=== PATIENT | male | born 1965 | race Caucasian/White ===

== ENCOUNTER 2016-05-27 17:47 | Inpatient (IN) | payer OTHER ==
[~2016-05-27] VITALS: Ht 180.3 cm; Wt 110.9 kg
[2016-05-27] MEDS ORDERED: ONDANSETRON INJ 2 MG/ML 2 ML VIAL IV STA (18:43)
[2016-05-27] MEDS ORDERED: SODIUM CHLORIDE 0.9% 1000ML 1,000 ML IV STA ×2 (18:43)
--- NOTE | 2016-05-27 18:59 | EMERGENCY ROOM VISIT NOTE ---
History Report prepared by Leonard: Liana Sequeira Under the Supervision of: Dr. Isauro Manley M.D. First contact with patient: 18:34 Chief Complaint: ABDOMINAL PAIN Stated Complaint: SEVERE ABDOMINAL PAIN ABOVE BELLY BUTTON/RT SIDE Nursing Triage Summary: Patient reports abd pain that started in his mid abd this morning and is now moving into the right lower quadrant. Patient also having nausea and fever. History of Present Illness The patient is a 51 year old male who presents to the Emergency Room with complaints of worsening right lower quadrant abdominal pain starting this morning. He was at baseline last night. The pain initially started out in the periumbilical region but is now located in the right lower quadrant. He currently rates a pain intensity of 8/10. He has worsening pain with deep breathing, laughing, and movement. He also complains of nausea but denies vomiting. The patient reports a loss of appetite. He denies fevers, chills, cough, congestion, diarrhea, urinary symptoms, or any other complaints. He denies any history of diverticulitis or any abdominal surgeries. He does not take any blood thinners. Source of History: patient Onset: this morning Position: abdomen (RLQ) Symptom Intensity: 8/10 Modifying Factors (Worsening): breathing (deep), movement, other (laughing) Associated Symptoms: + nausea, No chills, No cough, No diarrhea, No fevers, No urinary symptoms, No vomiting Review of Systems See HPI for pertinent positives & negatives. A total of 10 systems reviewed and were otherwise negative. Past Medical & Surgical Medical Problems: (1) Hypertension Family History Patient reports no known family medical history. Social History Smoking Status: Current Every Day Smoker Marital Status: Occupation Status: employed Current/Historical Medications Scheduled Metoprolol Succ (Toprol Xl) (Toprol-Xl), 50 MG PO DAILY Allergies Coded Allergies: No Known Allergies (Unverified , 05/27/16) Physical Exam Vital Signs Date Time Temp Pulse Resp B/P Pulse Ox O2 Delivery O2 Flow Rate FiO2 05/27/16 19:47 83 05/27/16 17:52 37.4 67 20 163/100 99 Room Air Physical Exam GENERAL: Patient is in no acute distress. HEENT: No acute trauma, normocephalic atraumatic, mucous membranes moist, no nasal congestion, no scleral icterus. NECK: No stridor, no adenopathy, no meningismus, trachea is midline. LUNGS: Clear to auscultation bilaterally, no wheeze, no rhonchi, breath sounds equal. HEART: Without murmurs gallops or rubs, regular rate and rhythm. ABDOMEN: Soft, moderately tender in the right lower quadrant, slightly tender in the right upper quadrant, bowel sounds positive, no hernias, no peritonitis. EXTREMITIES: No cyanosis or edema, full range of motion of all the joints without pain or difficulty, no signs for acute trauma. NEUROLOGIC: Oriented x 3, no acute motor or sensory deficits, no focal weakness. SKIN: No rash, no jaundice, no diaphoresis. Medical Decision & Procedures ER Provider Diagnostic Interpretation: CT results as stated below per my review and radiologist interpretation: CT OF THE ABDOMEN AND PELVIS WITH CONTRAST CLINICAL HISTORY: Right lower quadrant pain. Evaluate for acute appendicitis. COMPARISON STUDY: None. TECHNIQUE: Following IV administration of 116 mL of Optiray-320, axial images of the abdomen and pelvis were obtained from the lung bases to the proximal femurs. Images were reviewed in the axial, sagittal, and coronal planes. IV contrast was administered without complication. CT DOSE: 966.96 mGy.cm FINDINGS: Fatty infiltration of the liver is noted. Borderline cardiomegaly. The spleen, adrenal glands, kidneys and pancreas are unremarkable. There is no hydronephrosis. There is no evidence for a bowel obstruction. There is an appendicolith within the base of the appendix. The appendix is mildly dilated, measuring 1.2 cm in caliber. There is mild periappendiceal infiltration. There is no free air or abscess. There is a fat-containing umbilical hernia. There is no evidence for a bowel obstruction. Skeletal structures are unremarkable. IMPRESSION: 1. Acute appendicitis. No free air or abscess. 2. Fatty liver. 3. Fat-containing umbilical hernia. Electronically signed by: Vamsi Ocampo M.D. 05/27/2016 8:27 PM Dictated Date/Time: 05/27/2016 8:23 PM Laboratory Results 05/27/16 19:16 Red Blood Count 4.57, Mean Corpuscular Volume 88.8, Mean Corpuscular Hemoglobin 33.3, Mean Corpuscular Hemoglobin Concent 37.4, Mean Platelet Volume 8.8 05/27/16 19:16 Test 05/27/16 19:16 White Blood Count 12.10 K/uL (4.8-10.8) Red Blood Count 4.57 M/uL (4.7-6.1) Hemoglobin 15.2 g/dL (14.0-18.0) Hematocrit 40.6 % (42-52) Mean Corpuscular Volume 88.8 fL (80-100) Mean Corpuscular Hemoglobin 33.3 pg (25-34) Mean Corpuscular Hemoglobin Concent 37.4 g/dl (32-36) Platelet Count 183 K/uL (130-400) Mean Platelet Volume 8.8 fL (7.4-10.4) RDW Standard Deviation 40.3 fL (36.4-46.3) RDW Coefficient of Variation 12.5 % (11.5-14.5) Neutrophils % (Manual) 69.5 % Lymphocytes % (Manual) 23.5 % Monocytes % (Manual) 6.1 % Eosinophils % (Manual) 0.9 % Neutrophils # (Manual) 8.41 K/uL (1.4-6.5) Total Absolute Neutrophils 8.41 K/uL (1.4-6.5) Lymphocytes # (Manual) 2.84 K/uL (1.2-3.4) Total Absolute Lymphocytes 2.84 K/uL (1.2-3.4) Monocytes # (Manual) 0.74 K/uL (0.11-0.59) Eosinophils # (Manual) 0.11 K/uL (0-0.5) Prothrombin Time 10.5 SECONDS (9.0-12.0) Prothromb Time International Ratio 1.0 (0.9-1.1) Activated Partial Thromboplast Time 26.7 SECONDS (21.0-31.0) Partial Thromboplastin Ratio 1.0 Anion Gap 8.0 mmol/L (3-11) Est Creatinine Clear Calc Drug Dose 150.2 ml/min Estimated GFR () 123.4 Estimated GFR (Non- 106.5 BUN/Creatinine Ratio 15.6 (10-20) Calcium Level 9.0 mg/dl (8.5-10.1) Total Bilirubin 0.8 mg/dl (0.2-1) Aspartate Amino Transf (AST/SGOT) 20 U/L (15-37) Alanine Aminotransferase (ALT/SGPT) 38 U/L (12-78) Alkaline Phosphatase 70 U/L (45-117) Total Protein 7.9 gm/dl (6.4-8.2) Albumin 4.1 gm/dl (3.4-5.0) Globulin 3.8 gm/dl (2.5-4.0) Albumin/Globulin Ratio 1.1 (0.9-2) Lipase 110 U/L (73-393) Laboratory results reviewed by me. Medications Administered Medications (Trade) Dose Ordered Sig/Rui Route Start Time Stop Time Status Last Admin Dose Admin Ondansetron HCl 4 mg 4 mg NOW STAT IV 05/27/16 18:43 05/27/16 18:45 DC 05/27/16 19:28 4 MG Sodium Chloride (Nss 1000ml) 1,000 ml @ 999 mls/hr Q1H1M STAT IV 05/27/16 18:43 05/27/16 19:43 DC 05/27/16 19:29 999 MLS/HR Morphine Sulfate (MoRPHine SULFATE INJ) 4 mg Q30M PRN IV 05/27/16 18:45 06/10/16 18:44 05/27/16 19:29 4 MG ED Course 1834: The patient was evaluated in room C03. A complete history and physical exam was performed. 1843: Sodium Chloride 1000 ml @ 999 mls/hr IV, Sodium Chloride 1000 ml @ 200 mls /hr IV, Zofran Inj 4 mg IV 1845: Morphine Sulfate 4 mg IV 3: The patient will be given Benadryl due to his complaint of itching after he received Morphine. 2035: Cefoxitin IV 200 mg IV. I discussed the patient's case with Dr. Jones , general surgeon with [facility]. He recommended antibiotics and he will evaluate the patient for further management. Upon reevaluation, I discussed results and treatment plan with the patient. He verbalizes agreement and understanding. Medical Decision Differential diagnosis includes but is not limited to appendicitis, diverticulitis, hernia, UTI, pancreatitis, biliary colic, musculoskeletal pain. There is a mild leukocytosis which would be consistent with infection, no anemia. No significant electrolyte abnormality, kidney failure or hepatitis. There is no pancreatitis. On exam, the patient was not febrile. He is tender though in the right lower quadrant. Abdominal and pelvis CT shows evidence for acute appendicitis, no evidence for abscess or for perforation. The patient was given IV saline, IV morphine and IV Zofran. He received IV Benadryl when he began to itch from the morphine. I spoke with the on-call surgeon. The patient will be seen for presumed appendectomy. I did order for 2 g of IV Mefoxin for antibiotic coverage. I talked to the patient, case management is aware. Consults Time Called: 2030 Consulting Physician: Dr. Jones, general surgeon with [facility] Returned Call: [phone] I discussed the patient's case with Dr. Jones, general surgeon with [facility]. He recommended antibiotics and he will evaluate the patient for further management. Impression Primary Impression: Acute appendicitis Scribe Attestation The scribe's documentation has been prepared under my direction and personally reviewed by me in its entirety. I confirm that the note above accurately reflects all work, treatment, procedures, and medical decision making performed by me. Departure Information Dispostion Being Evaluated By Surgeon Sohail Masterson M.D. (PCP) Patient Instructions My [facility]
[2016-05-27] MEDS ORDERED: OPTIRAY 320 IV PRN (19:00)
[2016-05-27] MEDS ORDERED: METO50TA7 PO (19:00)
[2016-05-27] MEDS: MoRPHine SULFATE 4 MG/ML 1 ML CARP\\VIAL IV PRN ×2 (19:29→21:22)
[2016-05-27 19:43] LABS: PROTHROMBIN TIME (PATIENT) 10.5 SECONDS (9.0-12.0)
[2016-05-27] MEDS ORDERED: DiphenhydrAMINE HCL 50 MG/ML VIAL ONE (19:44)
[2016-05-27 19:48] LABS: BUN/CREATININE RATIO 15.6 (10-20); CREATININE 0.72 mg/dl (0.60-1.40); POTASSIUM 3.8 mmol/L (3.5-5.1)
[2016-05-27 19:51] LABS: ALB/GLOB RATIO 1.1 (0.9-2)
[2016-05-27 20:03] LABS: HEMATOCRIT 40.6 % (42-52); MEAN CELL VOLUME 88.8 fL (80-100); MEAN CORPUSCULAR HEMOGLOBIN 33.3 pg (25-34); MEAN CORPUSCULAR HGB CONC 37.4 g/dl (32-36); MEAN PLATELET VOLUME 8.8 fL (7.4-10.4); PLATELET COUNT 183 K/uL (130-400); RED BLOOD COUNT 4.57 M/uL (4.7-6.1)
[2016-05-27 20:21] LABS: COMPLETE YES; EOSINOPHIL % 0.9 %; LYMPH ABS # 2.84 K/uL (1.2-3.4); LYMPHOCYTE % 23.5 %; NEUTROPHILS % 69.5 %
--- NOTE | 2016-05-27 20:28 | DIAGNOSTIC IMAGING REPORT ---
CT OF THE ABDOMEN AND PELVIS WITH CONTRAST CLINICAL HISTORY: Right lower quadrant pain. Evaluate for acute appendicitis. COMPARISON STUDY: None. TECHNIQUE: Following IV administration of 116 mL of Optiray-320, axial images of the abdomen and pelvis were obtained from the lung bases to the proximal femurs. Images were reviewed in the axial, sagittal, and coronal planes. IV contrast was administered without complication. CT DOSE: 966.96 mGy.cm FINDINGS: Fatty infiltration of the liver is noted. Borderline cardiomegaly. The spleen, adrenal glands, kidneys and pancreas are unremarkable. There is no hydronephrosis. There is no evidence for a bowel obstruction. There is an appendicolith within the base of the appendix. The appendix is mildly dilated, measuring 1.2 cm in caliber. There is mild periappendiceal infiltration. There is no free air or abscess. There is a fat-containing umbilical hernia. There is no evidence for a bowel obstruction. Skeletal structures are unremarkable. IMPRESSION: 1. Acute appendicitis. No free air or abscess. 2. Fatty liver. 3. Fat-containing umbilical hernia. Electronically signed by: Vamsi Ocampo M.D. 05/27/2016 8:27 PM Dictated Date/Time: 05/27/2016 8:23 PM
[2016-05-27] MEDS ORDERED: CEFOXITIN SOD 2 GM VIAL IV STA (20:35)
[2016-05-27 21:49] LABS: URINE APPEARANCE CLEAR (CLEAR); URINE BILIRUBIN NEG (NEG); URINE COLOR YELLOW; URINE EPITHELIAL CELL AUTO 0-5 /lpf (0-5); URINE NITRITE NEG (NEG); URINE SPECIFIC GRAVITY 1.041 (1.000-1.030); UROBILINOGEN NEG (NEG); ZZUR CULT IF INDIC CLEAN CATCH NO
[2016-05-27 21:50] LABS: MANUAL MICROSCOPIC REQUIRED? NO; REVIEW REQ? NO
[2016-05-27] MEDS ORDERED: LIDOCAINE/EPINEPHRINE 1% 20 ML VIAL ONE (21:51)
[2016-05-27 21:59] VITALS: Ht 180.3 cm; Wt 110.9 kg
--- NOTE | 2016-05-27 22:09 | History & Physical Bridge Note ---
H&P Re-Evaluation Bridge Note: I have examined the patient, reviewed the History & Physical and in the interval since the performance of the History & Physical I have noted the following changes of clinical significance: No changes notedh and p dictated at 100 10;10 pm confirmation number [id number] dx acute appendicitis, plan lap appy possible open
[2016-05-27] MEDS ORDERED: LACTATED RINGER'S 1000ML 1,000 ML IV SCH (22:15)
[2016-05-27] MEDS ORDERED: MIDAZOLAM HCL 1 MG/ML 2ML VIAL ONE (22:26)
[2016-05-27] MEDS ORDERED: FENTANYL CITRATE INJ 50 MCG/1 ML 2 ML VIAL ONE ×3 (22:28→23:56)
[2016-05-27] MEDS ORDERED: LABETALOL HCL IV 5 MG/ML 20ML IV PRN (22:45)
[2016-05-27] MEDS ORDERED: ATROPINE SULFATE 0.1 MG/ML 5ML SYR IV PRN (22:45)
[2016-05-27] MEDS ORDERED: HYDROmorphone INJ 1 MG/ML SYR IV PRN (22:45)
[2016-05-27] MEDS ORDERED: EpHEDrine SULFATE INJ 50 MG/ML AMP IV PRN (22:45)
[2016-05-27] MEDS ORDERED: ONDANSETRON INJ 2 MG/ML 2 ML VIAL IV PRN (22:45)
[2016-05-27] MEDS ORDERED: MEPERIDINE HCL 25 MG/ML CARP IV PRN (22:45)
--- NOTE | 2016-05-27 22:57 | HISTORY & PHYSICAL EXAMINATION ---
DATE OF ADMISSION: 05/27/2016 SUMMARY: I was called at approximately 9:15 or so by the ER physician when the patient had presented with acute appendicitis. We came in to see him after we finished the other case, it is now approximately 10:00. The patient is a 51-year-old gentleman who presented to the Emergency Room early this evening with probably a 12-hour or so history of abdominal pain that started about 6:00 this morning, started in the supraumbilical area, eventually migrated to lower abdomen. 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 Eventually got to the point that he called his family doctor early afternoon and they advised him to come to the ER where he was evaluated by CAT scan and found a 1.2 cm structure in the lower quadrant compatible with appendix, probably acute appendicitis. The patient has had nausea but he has had no vomiting and no diarrhea. PAST MEDICAL HISTORY: Positive for the patient had bilateral rotator cuff surgeries, back surgery, knee surgery. Other than that, antihypertensive drug is the only drug that he has taken. ALLERGIES: He has no known allergies, although when we walked in to see him this evening, he had broken out on a generalized reaction, a pruritic type of thing, whether it was related to drug sensitivity. He had only had morphine and Mefoxin. Apparently, he may have had morphine at his other surgeries and did not seem to have a problem. SOCIAL HISTORY: He smokes and drinks some wine, I am not sure of the intensity of that either. Denies any real changes in weight as best as we can tell. PHYSICAL EXAMINATION: GENERAL: At this time reveals a very pleasant, somewhat nervous, hard of hearing gentleman in no acute distress other than that mentioned about his skin rash. HEAD: Normocephalic. EYES: PERRLA. There is no scleral icterus. NECK: There is no cervical lymphadenopathy. Carotid without any bruits. THROAT: Oropharyngeal area is free of any inflammatory process. LUNGS: Clear to auscultation. HEART: Normal sinus rhythm. ABDOMEN: Soft. He has exquisite tenderness at McBurney's point. He has a small umbilical hernia. EXTREMITIES: No pedal edema. LABORATORY DATA: White count is 12.10, he does have a left shift. The CAT scan as mentioned. His chemistries and liver function tests were all normal. PLAN: To proceed with laparoscopic appendectomy, possible open. Risks and complications were explained to the patient of bleeding, infection, converting to an open procedure, and he would like to proceed accordingly.
[2016-05-27] MEDS ORDERED: DEXAMETHASONE SOD INJ 4 MG/ML VIAL ONE (23:02)
[2016-05-27] MEDS ORDERED: ONDANSETRON INJ 2 MG/ML 2 ML VIAL ONE (23:02)
[2016-05-27] MEDS ORDERED: LIDOCAINE HCL 2% 2 ML VIAL (20MG/ML) ONE (23:02)
[2016-05-27] MEDS ORDERED: GLYCOPYRROLATE INJ 0.2 MG/ML VIAL ONE (23:02)
[2016-05-27] MEDS ORDERED: NEOSTIGMINE METHYLSULFATE 5 MG/5 ML SYR ONE (23:02)
[2016-05-27] MEDS ORDERED: ROCURONIUM BROMIDE 10 MG/ML 5 ML VIAL ONE ×2 (23:02→23:46)
[2016-05-27] MEDS ORDERED: PROPOFOL IV EMULSION 10 MG/ML 20 ML VIAL IV ONE ×2 (23:02→23:41)
[2016-05-27] MEDS ORDERED: LABETALOL HCL IV 5 MG/ML 20ML IV ONE (23:06)
[2016-05-28] VITALS (11 sets, daily range): BP systolic 124–158; BP diastolic 72–101; PULSE 69–84; TEMP 36.4–37.2; O2SAT 94–98
--- NOTE | 2016-05-28 00:04 | [facility] Post Operative Brief Note ---
Immediate Operative Summary Operative Date May 28, 2016. Pre-Operative Diagnosis Acute Appendicitis Post-Operative Diagnosis Acute Appendicitis inc umbilical hernia Procedure(s) Performed Laparoscopic Appendectomy repair incar umbilical hernia Surgeon Dr. Jones Estimated Blood Loss 6ml Findings acute necrotic perfo appendicitis Specimens For Culture: 1. Peritoneal Fluid - Culture and Sensitivity, Aerobic, Anaerobic - Routine Permanent: A. Appendix Drains 19 kayleen per stab ruq
[2016-05-28] MEDS ORDERED: ONDANSETRON INJ 2 MG/ML 2 ML VIAL IV PRN (00:15)
[2016-05-28] MEDS: FENTANYL CITRATE INJ 50 MCG/1 ML 2 ML VIAL IV PRN ×2 (00:23→00:37)
--- NOTE | 2016-05-28 00:44 | Anesthesiology Progress Note ---
Anesthesia Post Op Note Date & Time May 28, 2016 at 00:44 Vital Signs Pain Intensity: 9.0 Vital Signs Past 12 Hours Date Time Temp Pulse Resp B/P Pulse Ox O2 Delivery O2 Flow Rate FiO2 05/28/16 00:35 75 25 164/94 96 Mask 8 05/28/16 00:25 80 27 151/88 90 Mask 8 05/28/16 00:15 81 26 153/92 90 Mask 5 05/28/16 00:12 37.1 81 27 142/84 91 Mask 5 05/27/16 22:17 37.4 83 20 163/100 99 05/27/16 21:59 Room Air 05/27/16 19:47 83 05/27/16 17:52 37.4 67 20 163/100 99 Room Air Notes Mental Status: alert / awake / arousable, participated in evaluation Pt Amnestic to Procedure: Yes Nausea / Vomiting: adequately controlled Pain: adequately controlled Airway Patency, RR, SpO2: stable & adequate BP & HR: stable & adequate Hydration State: stable & adequate Anesthetic Complications: no major complications apparent
[2016-05-28] MEDS: HYDROmorphone INJ 1 MG/ML SYR IV PRN ×4 (01:50→17:49)
[2016-05-28] MEDS: LACTATED RINGER'S 1000ML 1,000 ML IV SCH ×3 (01:50→17:18)
[2016-05-28] MEDS: METRONIDAZOLE / NSS 500 MG in PREMIXED NSS 100 ML IV SCH ×3 (02:10→17:49)
[2016-05-28] MEDS: OXYCODONE/ACETAMINOPHEN 5-325 TAB PO PRN ×5 (03:37→19:52)
[2016-05-28] MEDS: CIPROFLOXACIN / D5W 400 MG in PREMIXED IN D5W 200 ML IV SCH ×2 (05:54→19:08)
[2016-05-28] MEDS: HEPARIN SOD 5000 UNIT/0.5 ML CARP SQ SCH ×3 (06:05→21:29)
--- NOTE | 2016-05-28 07:33 | OPERATIVE REPORT ---
DATE OF OPERATION: 05/28/2016 SURGEON: Dr. Jones. PREOPERATIVE DIAGNOSIS: Acute appendicitis, very small umbilical hernia. POSTOPERATIVE DIAGNOSIS: Same with incarcerated umbilical hernia. PROCEDURE: Laparoscopic appendectomy, repair of incarcerated umbilical hernia. SUMMARY: After induction of general anesthesia, the patient's abdomen was prepped with Betadine scrubbing solution and properly draped. The patient had a very small umbilical incarcerated hernia that I thought initially we tried to stay away to enter in laparoscopic aspect. Therefore, we made an incision in the superior aspect of the umbilical area, deepened through subcutaneous tissue, but we were met with the hernia protruding in that area. Therefore, I elected at this time, even though I had not planned to, go ahead and reduce the incarcerated umbilical hernia. I used 0 sutures of Vicryl stay sutures as we entered the peritoneal cavity. The patient had some significant, probably 2 cm of incarcerated preperitoneal fat in the hernia that we reduced. Once we entered the peritoneal cavity CO2 was insufflated followed by the camera. Point of entry inspected and no injury identified. We then could identify that the cecum was slightly dilated, but easily appreciated. Under direct visualization I placed a 5 mm right upper quadrant port with preemptive local analgesia 1% Xylocaine with epinephrine. We placed the grasper in that area and elevated the cecum. I could hardly see the appendix, it seemed like there was inflammation and I could not tell whether or not the appendix was extending in the retrocecal area. At this point, I converted the 5 mm umbilical area to 11 mm port and then proceeded with placing a 5 mm port in the left lower quadrant that we used as the camera site with the 2 other ports the right upper quadrant and umbilical area and then I was able to elevate the appendix and identify it. This was very thickened mesoappendix and the appendix appeared to be grayish in some areas, almost necrotic. We then went down to see the base of the appendix under the cecum and there it seemed to be right at the takeoff of the cecum the inflammation stopped. We created a window in that area and then I used the stapler over 45 purple load of the Endo-FILIPE and divided the appendix off and leave a very small amount to the cecum. That staple line appeared to be intact and away from any gross inflammation. We then divided what appeared to be the appendiceal artery to the appendix by using clips. The mesoappendix was quite thickened. I stripped it with some edema and you could see that there was gross inflammation and then used another application of the FILIPE using the 65 load of the purple. We divided the whole mesentery to the appendix. Hemostasis was satisfactory. We had the appendix freed from the area. We then checked the cecum and the appendiceal mesentery to make sure there was no oozing or bleeding. There was some cloudy fluid once we had elevated everything up therefore we cultured this. This was done in the gutter with a trap. We at this point placed the appendix in an Endopouch and took it out intact through the epigastric port. We repositioned the 11 mm trocar in this area and I then placed the patient in reverse Trendelenburg position, irrigated the abdomen copiously, but I elected to drain the abdomen with a Alan drain, which we were brought into the left lower quadrant and took it out right upper quadrant and laid it on the gutter down the pelvic area attached to skin edges with 2-0 silk suture. The area was then checked for hemostasis again. We then closed the umbilical opening by getting the fascial planes and we closed with #1 PDS suture [id number] x2 and 4-0 Monocryl subcutaneous stitch for both the umbilical area and the left lower quadrant and Steri-Strips applied. The procedure was tolerated well by the patient. Approximate blood loss approximately 4 mL. The patient was taken to recovery room in good condition. I attest to the content of the Intraoperative Record and any orders documented therein. Any exceptio ns are noted below.
--- NOTE | 2016-05-28 07:56 | SURGERY PROGRESS NOTE ---
DATE: 05/28/2016 DATE: 05/28/2016. Bang is less than 12 hours postoperative laparoscopic appendectomy for ruptured appendicitis. He is alert, coherent. He is much more comfortable than he was last night. Intraoperative findings were discussed with the patient. His last temperature showed 37.2, pulse 77, respirations 16, blood pressure 147/84, O2 sats 94 on room air. The abdomen is soft, there is minimal serous drainage from the Alan drain. At this point we will continue broad-spectrum antibiotics and start him on a diet. Suspect he will be here another day or so prior to being discharged and will send him home on broad-spectrum antibiotics for another week whether it would be Cipro or Cipro and Flagyl combination. I would like to stay away from Augmentin. The patient had a reaction yesterday afternoon in the ER. We were not sure if the rash that he developed was related to morphine or may have been the Mefoxin that he had.
[2016-05-28] MEDS: METOPROLOL SUCC 50MG EXT REL TAB PO SCH (09:19)
[2016-05-29] VITALS (9 sets, daily range): BP systolic 141–193; BP diastolic 85–131; PULSE 71–90; TEMP 36.5–37; O2SAT 95–96
[2016-05-29] MEDS: HYDROmorphone INJ 1 MG/ML SYR IV PRN ×2 (00:05→07:34)
[2016-05-29] MEDS: LACTATED RINGER'S 1000ML 1,000 ML IV SCH ×2 (01:15→09:39)
[2016-05-29] MEDS: METRONIDAZOLE / NSS 500 MG in PREMIXED NSS 100 ML IV SCH ×2 (01:17→09:38)
[2016-05-29] MEDS: OXYCODONE/ACETAMINOPHEN 5-325 TAB PO PRN ×5 (01:23→21:52)
[2016-05-29] MEDS: CIPROFLOXACIN / D5W 400 MG in PREMIXED IN D5W 200 ML IV SCH (05:56)
[2016-05-29] MEDS: HEPARIN SOD 5000 UNIT/0.5 ML CARP SQ SCH ×3 (06:02→21:50)
[2016-05-29] MEDS: METOPROLOL SUCC 50MG EXT REL TAB PO SCH (07:34)
[2016-05-29] MEDS ORDERED: AMOX875T PO (07:39)
[2016-05-29] MEDS ORDERED: OXYC-57 PO (07:39)
--- NOTE | 2016-05-29 07:42 | Discharge Instructions ---
Discharge Instructions Date of Service May 29, 2016. Admission Reason for Admission: Acute Appendicitis Discharge Discharge Diagnosis / Problem: appendectomy Discharge Goals Goal(s): Decrease discomfort Activity Recommendations Activity Limitations: as noted below Lifting Limitations: no more than 10 pounds Shower/Bathe: no limitations (may shower ) Driving or Machine Use: resume 3 days after discharge (if not taking Percocet) . Instructions / Follow-Up Instructions / Follow-Up Dr. Jones's office next week to have drain removed, call [phone] to schedule Current Hospital Diet Patient's current hospital diet: Regular Diet Discharge Diet Recommended Diet: Regular Diet Procedures Procedures Performed: Laparoscopic Appendectomy repair incar umbilical hernia Pending Studies Studies pending at discharge: no Medical Emergencies . Who to Call and When: Medical Emergencies: If at any time you feel your situation is an emergency, please call 911 immediately. . Non-Emergent Contact Non-Emergency issues call your: Surgeon Call Non-Emergent contact if: you have a fever, temperature is above 101.5, your pain is not controlled, wound has increased drainage, wound has increased redness, wound has increased pain . "Provider Documentation" section prepared by Asa Cosme. VTE Core Measure Inpt VTE Proph given/why not?: Unfractionated heparin SQ, SCD's
--- NOTE | 2016-05-29 07:44 | SURGERY PROGRESS NOTE ---
DATE: 05/29/2016 DATE: 05/29/2016. Bang is 2nd postoperative day status post laparoscopic appendectomy, ruptured appendix. He feels fine. He is up moving around. He states he is passing flatus. He still has some abdominal pain that is requiring some IV analgesics. Last vitals showed a temperature of 36.5, pulse 71, respirations 16, blood pressure 157/87, O2 sats 95 on room air. I\T\O, he had 1200 mL of urine overnight. The Alan drainage is just 20 mL. Laboratory studies were repeated this morning. His abdomen is soft. It is not distended. The drainage is serosanguineous out of the Alan drain. He is anxious to go home. At this point, if he can manage oral analgesics sufficiently enough and he continues to do well after a regular diet he could certainly go home. We will keep him on broad spectrum antibiotics for another week, probably just keep him on Augmentin and we will see him in the office next week to take out the drain. He should not drive and do not lift anything more than 10 pounds until be seen.
[2016-05-29 08:55] LABS: BASO % 0.2 %; BASO ABS # 0.02 K/uL (0-0.2); COMPLETE YES; EOS % 2.1 %; HEMATOCRIT 38.9 % (42-52); IG% 0.2 %; LYMPH ABS # 2.48 K/uL (1.2-3.4); MEAN CORPUSCULAR HEMOGLOBIN 31.4 pg (25-34); MEAN CORPUSCULAR HGB CONC 35.2 g/dl (32-36); MEAN PLATELET VOLUME 8.8 fL (7.4-10.4); MONO % 7.6 %; NEUT % 62.9 %; PLATELET COUNT 175 K/uL (130-400); RED BLOOD COUNT 4.37 M/uL (4.7-6.1); WHITE BLOOD COUNT 9.18 K/uL (4.8-10.8)
[2016-05-29 09:23] LABS: BUN/CREATININE RATIO 10.1 (10-20); CREATININE 0.71 mg/dl (0.60-1.40)
[2016-05-29] MEDS ORDERED: HydrALAZINE HCL 20 MG/ML VIAL IV. STA ×3 (09:54→13:11)
[2016-05-29] MEDS ORDERED: LORAZEPAM 1 MG TAB PO STA (14:19)
[2016-05-29] MEDS ORDERED: LORAZEPAM 1 MG TAB PO PRN (15:15)
--- NOTE | 2016-05-29 15:24 | Medical Consult ---
Consultation Date of Consultation: May 29, 2016. Attending Physician: Ismael Jones M.D. Reason for Consultation: Postop HTN History of Present Illness Patient seen and examined. 51 year old male with PMHx of HTN, is seen in consultation at the request of Dr. Jones for postop HTN. Patient is POD1 from laparoscopy appendectomy. Today the patient has developed increasingly high BP as high as 190/125. He reports that his pain has been "rough." He rates it currently as a /10. He states he was barely able to sleep last night because of it and thinks he got about one hour of sleep. He became tearful during the exam stating he today he found out a family member is dying. He states he doesn't feel anxious but does feel shaky and that today has just been a very rough day. He denies fevers, chills, URI symptoms, chest pain, SOB, headaches, dizziness, vision changes, nausea, vomiting, diarrhea, dysuria, calf pain and edema. He received 30mg IV hydralazine from primary team. BP is improving. Past Medical/Surgical History Medical Problems: (1) Hypertension Status: Chronic Surgical Problems: (1) History of appendectomy Status: Chronic Family History Patient reports no known family medical history. Social History Smoking Status: Current Every Day Smoker Alcohol Use: occasionally Marital Status: Occupation Status: employed Allergies Coded Allergies: No Known Allergies (Unverified , 05/27/16) Current Inpatient Medications Current Inpatient Medications Medications (Trade) Dose Ordered Sig/Rui Route Start Time Stop Time Status Last Admin Dose Admin Ioversol (Optiray 320) 100 ml UD PRN IV 05/27/16 19:00 05/31/16 18:59 Hydromorphone HCl 1 mg 1 mg Q3RWA PRN IV 05/28/16 00:15 06/11/16 00:14 05/29/16 07:34 1 MG Lactated Ringer's (Lr 1000ml) 1,000 ml @ 50 mls/hr Q20H IV 05/28/16 02:00 06/27/16 01:59 05/29/16 09:39 50 MLS/HR Ondansetron HCl (Zofran Inj) 4 mg Q6H PRN IV 05/28/16 00:15 06/27/16 00:14 Heparin Sodium (Porcine) (Heparin Sq 5000 Unit/0.5ml) 5,000 unit Q8 SQ 05/28/16 06:00 06/27/16 05:59 05/29/16 13:39 5,000 UNIT Metoprolol Succinate (Toprol Xl Tab) 50 mg QAM PO 05/28/16 09:00 06/27/16 08:59 05/29/16 07:34 50 MG Oxycodone/ Acetaminophen (Percocet 5-325mg Tab) 2 tab Q4H PRN PO 05/29/16 10:00 06/12/16 09:59 05/29/16 10:58 2 TAB Ciprofloxacin (Cipro Tab) 500 mg BID PO 05/29/16 18:00 06/07/16 05:59 Metronidazole (Flagyl Tab) 500 mg Q8 PO 05/29/16 22:00 06/07/16 01:59 Review of Systems See above for pertinent positives & negatives. A total of 10 systems reviewed and were otherwise negative. Physical Exam Date Time Temp Pulse Resp B/P Pulse Ox O2 Delivery O2 Flow Rate FiO2 05/29/16 15:01 36.8 90 17 141/85 96 Room Air 05/29/16 14:10 155/87 05/29/16 12:02 178/100 05/29/16 11:35 37.0 75 20 189/124 95 Room Air 05/29/16 10:00 190/112 183/131 05/29/16 08:00 Room Air 05/29/16 07:40 36.9 74 22 188/102 95 Room Air 193/125 05/29/16 00:29 157/87 05/29/16 00:10 Room Air 05/29/16 00:04 36.5 71 16 165/99 95 Room Air 05/28/16 19:00 37.1 77 18 158/72 95 Room Air 05/28/16 15:45 Room Air 05/28/16 15:34 36.7 70 18 152/76 96 Room Air General Appearance: + pertinent finding (Very pleasant WD/WN 51 year old male lying in bed, tearful and anxiuos appearing ) Head: normocephalic, atraumatic Eyes: PERRL, EOMI, sclerae normal ENT: hearing grossly normal, pharynx normal Neck: supple, no JVD Respiratory/Chest: chest non-tender, lungs clear, normal breath sounds, no respiratory distress, no accessory muscle use Cardiovascular: regular rate, rhythm, no edema, no gallop, no JVD, no murmur, normal peripheral pulses Abdomen/GI: normal bowel sounds, soft, + tenderness (s/p laproscopy, incisions with steri strips noted, drain noted ) Back: normal inspection, no muscle spasm Extremities/Musculoskelatal: no calf tenderness, normal capillary refill, no pedal edema Neurologic/Psych: alert, oriented x 3, + pertinent finding (tearful, nonfocal ) Skin: normal color, warm/dry, no rash Lymphatic: no adenopathy Laboratory Results Last 24 Hours Test 05/29/16 08:30 White Blood Count 9.18 K/uL Red Blood Count 4.37 M/uL Hemoglobin 13.7 g/dL Hematocrit 38.9 % Mean Corpuscular Volume 89.0 fL Mean Corpuscular Hemoglobin 31.4 pg Mean Corpuscular Hemoglobin Concent 35.2 g/dl Platelet Count 175 K/uL Mean Platelet Volume 8.8 fL Neutrophils (%) (Auto) 62.9 % Lymphocytes (%) (Auto) 27.0 % Monocytes (%) (Auto) 7.6 % Eosinophils (%) (Auto) 2.1 % Basophils (%) (Auto) 0.2 % Neutrophils # (Auto) 5.77 K/uL Lymphocytes # (Auto) 2.48 K/uL Monocytes # (Auto) 0.70 K/uL Eosinophils # (Auto) 0.19 K/uL Basophils # (Auto) 0.02 K/uL RDW Standard Deviation 39.9 fL RDW Coefficient of Variation 12.3 % Immature Granulocyte % (Auto) 0.2 % Immature Granulocyte # (Auto) 0.02 K/uL Sodium Level 138 mmol/L Potassium Level 4.0 mmol/L Chloride Level 105 mmol/L Carbon Dioxide Level 24 mmol/L Anion Gap 9.0 mmol/L Blood Urea Nitrogen 7 mg/dl Creatinine 0.71 mg/dl Est Creatinine Clear Calc Drug Dose 152.3 ml/min Estimated GFR () 124.2 Estimated GFR (Non- 107.1 BUN/Creatinine Ratio 10.1 Random Glucose 136 mg/dl Calcium Level 9.0 mg/dl Assessment & Plan HTN -with worsening postop hypertension as high as 190s/110s -Received 30mg total of IV hydralazine from primary team, BP improved -Postop hypertension likely multifactorial secondary to pain, emotional factors (dying family members) and underlying HTN -Check EKG -recommend continue metoprolol -Pain control - patient instructed to ask for prn pain medications when needed, [place] prescription monitoring [place] reviewed and no significant narcotic history identified -Ativan prn anxiety -Continue to monitor VS closely -Thank you for the consult PERFORATED APPENDIX S/P LAPAROSCOPY APPENDECTOMY -POD1, by Dr. Jones -management per general surgery TOBACCO ABUSE -cessation counseling given DVT PROPHYLAXIS: per primary team CODE STATUS: FULL CODE DISPO:per primary team Patient seen in collaboration with Dr. Chang Thank you for this consultation. We will follow the patient with you during their hospital stay. You can reach a [facility] via pager @ . I have seen and examined this patient and discussed the case with the provider above. BP has improved after Ativan and aggressive pain control efforts with narcotics. VSS stable and physical exam unremarkable. Of note, he is on Toprol as monotherapy, however, HCTZ or an ACEI may be a stronger choice. I recommended this to that patient to have a discussion with his PCP. He also told me that he had an addiction to Xanax in the past and that he suffers from anxiety. He reports having SSRIs on hand at home, and we discussed the appropriate way to use those is consistently as opposed to PRN. He verbalized understanding with intent to discuss this all with his PCP prior to continuing unsupervised self-medicating. Cont to trend BP q4h while patient remains in house. I agree with the stated assessment and plan above. Tatiana Chang, DO
[2016-05-29] MEDS: CIPROFLOXACIN 500 MG TAB PO SCH (18:07)
[2016-05-29] MEDS: METRONIDAZOLE 500 MG TAB PO SCH (21:51)
[2016-05-30] MEDS: OXYCODONE/ACETAMINOPHEN 5-325 TAB PO PRN ×2 (01:44→10:30)
[2016-05-30 04:00] VITALS: BP_SYST 164; BP_SYST 170; BP_DIAS 107; BP_DIAS 114; PULSE 80; TEMP 36.5; O2SAT 96
[2016-05-30] MEDS ORDERED: NURSING VERBAL MED ORDER ONE (05:00)
[2016-05-30] MEDS ORDERED: HydrALAZINE HCL 20 MG/ML VIAL IV. STA (05:13)
[2016-05-30] MEDS: METRONIDAZOLE 500 MG TAB PO SCH (05:28)
[2016-05-30] MEDS: HEPARIN SOD 5000 UNIT/0.5 ML CARP SQ SCH (05:34)
[2016-05-30] MEDS: HYDROmorphone INJ 1 MG/ML SYR IV PRN (05:38)
[2016-05-30] MEDS: LACTATED RINGER'S 1000ML 1,000 ML IV SCH ×2 (06:11→09:11)
[2016-05-30 06:13] VITALS: BP 141/88; PULSE 67
[2016-05-30 07:30] VITALS: BP_SYST 147; BP_SYST 165; BP_DIAS 104; BP_DIAS 89; PULSE 72; TEMP 36.4; O2SAT 97
[2016-05-30] MEDS: CIPROFLOXACIN 500 MG TAB PO SCH (09:01)
[2016-05-30] MEDS: METOPROLOL SUCC 50MG EXT REL TAB PO SCH (09:01)
--- NOTE | 2016-05-30 10:04 | Surgery Progress Note ---
Surgery Progress Note Date of Service May 30, 2016. Subjective Post OP Day: 2 + ambulating, + diet (tolerating regular diet), + feeling well, + pain controlled, No complaints BP is improved Objective Vital Signs: Date Time Temp Pulse Resp B/P Pulse Ox O2 Delivery O2 Flow Rate FiO2 05/30/16 07:40 Room Air 05/30/16 07:30 36.4 72 18 165/104 97 147/89 05/30/16 06:13 67 141/88 05/30/16 04:00 36.5 80 18 164/114 96 Room Air 170/107 05/30/16 00:00 Room Air 05/29/16 23:03 36.8 77 18 143/85 96 Room Air 05/29/16 15:45 Room Air 05/29/16 15:01 36.8 90 17 141/85 96 Room Air 05/29/16 14:10 155/87 05/29/16 12:02 178/100 05/29/16 11:35 37.0 75 20 189/124 95 Room Air Physical Exam: MARGARETTE drainage (serous 60 cc yesterday) General Appearance: WD/WN, no apparent distress Head: normocephalic, atraumatic Respiratory/Chest: normal breath sounds, no respiratory distress Cardiovascular: regular rate, rhythm Abdomen: normal bowel sounds, non tender, non distended, soft Incision(s): clean, dry, intact Extremities: no pedal edema Assessment & Plan POD#2 appendectomy for perforated appendicitis. Postop hypertension - now improved. Stable for discharge home today.
[2016-05-30 10:50] VITALS: BP 147/89; PULSE 72; TEMP 36.4; O2SAT 97
[2016-05-30] MEDS ORDERED: FENTANYL CITRATE INJ 50 MCG/1 ML 2 ML VIAL IV ONE (11:47)
--- NOTE | 2016-05-30 18:52 | Progress Note ---
Medicine Progress Note Date & Time of Visit: May 30, 2016 at 18:49. Subjective Patient seen prior to discharge. Pain controlled. Objective Last 8 Hrs Date Time Temp Pulse Resp B/P Pulse Ox O2 Delivery O2 Flow Rate FiO2 05/30/16 10:50 36.4 72 18 97 Room Air Physical Exam: General-awake; alert; NAD Eyes-EOMI; no scleral icterus Neck-no stridor; trachea midline Lungs-CTA bilaterally; no wheezes/crackles Heart-RRR; no m/r/g Abdomen-soft; ND; nBS; drain c/d/i; surgi-strips in place Extremities-no c/c/e; no deformity Neuro-no focal deficits Assessment & Plan HTN -Received 30mg total of IV hydralazine from primary team, BP improved -Postop hypertension likely multifactorial secondary to pain, emotional factors (dying family members) and underlying HTN -Continue metoprolol -Pain control - patient instructed to ask for prn pain medications when needed, [place] prescription monitoring [place] reviewed and no significant narcotic history identified -Ativan prn anxiety PERFORATED APPENDIX S/P LAPAROSCOPY APPENDECTOMY -POD2, by Dr. Jones -management per general surgery TOBACCO ABUSE -cessation counseling given DVT PROPHYLAXIS: per primary team CODE STATUS: FULL CODE
--- NOTE | 2016-06-02 13:14 | DISCHARGE SUMMARY ---
PRIMARY DISCHARGE DIAGNOSES: 1. Ruptured appendicitis. 2. Incarcerated umbilical hernia. 3. Hypertension. 4. Anxiety. PROCEDURE PERFORMED: Laparoscopic appendectomy and repair of incarcerated umbilical hernia. CONSULTATIONS: [facility] hospitalist to assist in management of hypertension. HOSPITAL COURSE: The patient is a 51-year-old male who presented to the Emergency Department with a complaint of right lower quadrant pain for 1 day. His white count was 12,000. CT was consistent with appendicitis. He was taken to the operating room overnight for laparoscopic appendectomy. Procedure was well tolerated. He did have early perforation. He was continued on IV Cipro and Flagyl postoperatively. He was doing well on postoperative day 1, was continued on IV antibiotics. He was able to tolerate an advancing diet. On postoperative day 2, his white count was 9000. He had been afebrile. He was anxious to return home. His blood pressure however was as high as 190/112. He responded to p.r.n. hydralazine. We asked the hospitalist to assist us in evaluating that and was considered to be multifactorial including pain and anxiety. He was continued on his metoprolol and was given a third dose of Hydralazine. By postoperative day 3, his blood pressure had improved to 147/89. At that time he was stable for discharge with close follow up with his family physician. DISCHARGE INSTRUCTIONS: Discharge home. Follow up with Dr. Jones in 1 week. Follow up with PCP for anxiety and blood pressure also this week. DISCHARGE MEDICATIONS: Augmentin 875 mg p.o. b.i.d. x10 and Percocet 1-2 tablets every 4 hours as needed. Continue home metoprolol XL 50 mg daily. MTDD
[2016-09-28] MEDS ORDERED: TADA10TA PO (15:19)
[2016-10-05] MEDS ORDERED: DOCU-94 PO (05:43)
[2016-10-05] MEDS ORDERED: MORP-157 PO (08:32)
== END 2016-05-30 11:48 | disposition home or self-care (01) | DRG 340 ==
LOC: ENRESERVTM → ENRESERVDT → C.EDB 17:49 → C.MSW 05-28 00:10 → MERGE 05-28 00:10 → C.MSW 05-28 13:38
PROVIDERS: ADMIT Surgery; ATTEND Surgery
PROC: 0WQF4ZZ Repair Abdominal Wall, Percutaneous Endoscopic Approach (ICD-10-PCS; principal; 2016-05-28)
PROC: 0DTJ4ZZ Resection of Appendix, Percutaneous Endoscopic Approach (ICD-10-PCS; principal; 2016-05-28)
DX: K35.2 Acute appendicitis with generalized peritonitis (principal); K42.9 Umbilical hernia without obstruction or gangrene; I10 Essential (primary) hypertension; F17.210 Nicotine dependence, cigarettes, uncomplicated; Z79.899 Other long term (current) drug therapy

== ENCOUNTER → 2016-10-05 | Day surgery (SDC) | payer OTHER ==
[2016-09-28 15:21] VITALS: BMI 33.0
[~2016-10-05] VITALS: Ht 180.3 cm; Wt 108.6 kg
[~2016-10-05] MED LIST: ATROPINE SULFATE 0.1 MG/ML 5ML SYR IV PRN; BACITRACIN OINT 15 GM TUBE ONE; BUPIVACAINE 0.5 % 5 MG/1 ML MPF 30ML VIAL ONE; CEFAZOLIN 2000 MG/60 ML D5W IV SCH; CEFAZOLIN IV 2,000 MG/60 ML D5W IV ONE; DOCU-94 PO; DiphenhydrAMINE HCL 50 MG/ML VIAL ONE; EpHEDrine SULFATE INJ 50 MG/ML AMP IV PRN; FENTANYL CITRATE INJ 50 MCG/1 ML 2 ML VIAL ONE; FLUMAZENIL 0.1 MG/1 ML 10 ML VIAL IV PRN; GLYCOPYRROLATE INJ 0.2 MG/ML VIAL ONE; HYDROmorphone INJ 2 MG/ML SYR/VIAL IV PRN; LABETALOL HCL IV 5 MG/ML 20ML IV PRN; LACTATED RINGER'S 1000ML 1,000 ML IV SCH; LIDOCAINE HCL 1% 20 ML VIAL ONE; LIDOCAINE HCL 2% 2 ML VIAL (20MG/ML) ONE; MEPERIDINE HCL 25 MG/ML CARP IV PRN; METO50TA7 PO; MIDAZOLAM HCL 1 MG/ML 2ML VIAL ONE; MORP-157 PO; MoRPHine SULFATE 2 MG/ML CARP IV PRN; MoRPHine SULFATE 2 MG/ML CARP ONE; NALOXONE HCL 0.4 MG/1 ML VIAL/CARP IV PRN; NEOSTIGMINE METHYLSULFATE 5 MG/5 ML SYR ONE; ONDANSETRON INJ 2 MG/ML 2 ML VIAL IV PRN; ONDANSETRON INJ 2 MG/ML 2 ML VIAL ONE; PHENYLEPHRINE 100MCG/ML 5ML SYR IV PRN; PROPOFOL IV EMULSION 10 MG/ML 20 ML VIAL IV ONE; ROCURONIUM BROMIDE 10 MG/ML 5 ML VIAL ONE; SODIUM CHLORIDE 0.9% 1000ML 1,000 ML IV SCH; TADA10TA PO
[2016-10-05 05:44] VITALS: BP 113/68; PULSE 75; TEMP 37.1; O2SAT 94; Ht 180.3 cm; Wt 108.6 kg
--- NOTE | 2016-10-05 07:10 | History & Physical Bridge Note ---
H&P Re-Evaluation Bridge Note: I have examined the patient, reviewed the History & Physical and in the interval since the performance of the History & Physical I have noted the following changes of clinical significance: No changes noted
--- NOTE | 2016-10-05 08:25 | [facility] Post Operative Brief Note ---
Immediate Operative Summary Operative Date Oct 05, 2016. Pre-Operative Diagnosis Umbilical Hernia Post-Operative Diagnosis Same as preoperative Procedure(s) Performed Open Umbilical Hernia Repair with Mesh Surgeon Dr. Les Marcelino Road Manager Surgeon(s) Dr. Elvia Harper Estimated Blood Loss 5ml Findings umbilical hernia, size 3x3cm, Fluids (cc crystalloids) 800ml Specimens None per surgeon Drains none Anesthesia general Complication(s) None Disposition Recovery Room / PACU
--- NOTE | 2016-10-05 08:36 | Discharge Instructions ---
Discharge Instructions Date of Service Oct 05, 2016. Visit Reason for Visit: Umbilical Hernia Discharge Discharge Diagnosis / Problem: S/P open repair umbilical hernia with mesh Discharge Goals Goal(s): Decrease discomfort, Improve function Activity Recommendations Activity Limitations: per Instructions/Follow-up section Lifting Limitations: no more than 25 pounds Exercise/Sports Limitations: rest today May Resume Sexual Activity: when tolerated Shower/Bathe: may shower/bathe in 3 days Driving or Machine Use: resume 3 days after discharge Anesthesia . Post Anesthesia Instructions: If you have had General Anesthesia or IV Sedation: * Do not drive today. * Resume driving when surgeon permits. * Do not make important decisions or sign legal documents today. * Call surgeon for: 1. Temperature elevations greater than 101 degrees F. 2. Uncontrollable pain. 3. Excessive bleeding. 4. Persistent nausea and vomiting. 5. Medication intolerance (nausea, vomiting or rash). * For nausea and vomiting use only clear liquids such as: tea, soda, bouillon until nausea subsides, then gradually increase diet as tolerated. * If you have any concerns or questions, call your surgeon's office. If physician is unavailable and it is an emergency, call 911 or go to the nearest emergency room. . Instructions / Follow-Up Instructions / Follow-Up keep the dressing on for 4 days, he can take a shower on 10/09/2016, no driving while taking pain medicine, follow up 1 week, Diet Recommendations Recommended Home Diet: resume previous diet Procedures Procedures Performed: Open Umbilical Hernia Repair with Mesh Pending Studies Studies pending at discharge: no Medical Emergencies . Who to Call and When: Medical Emergencies: If at any time you feel your situation is an emergency, please call 911 immediately. . Non-Emergent Contact Non-Emergency issues call your: Surgeon Call Non-Emergent contact if: you have a fever, temperature is above 100.5, your pain is not controlled, your pain is worsening, wound has increased drainage, wound has increased redness . . "Provider Documentation" section prepared by Les Marcelino. . [place] Drug Monitoring Program Search Results: no issues identified
[2016-10-05] MEDS: FENTANYL CITRATE INJ 50 MCG/1 ML 2 ML VIAL IV PRN ×4 (08:45→09:00)
--- NOTE | 2016-10-05 09:08 | Anesthesiology Progress Note ---
Anesthesia Post Op Note Date & Time Oct 05, 2016 at 09:07 Vital Signs Pain Intensity: 2 Vital Signs Past 12 Hours Date Time Temp Pulse Resp B/P (MAP) Pulse Ox O2 Delivery O2 Flow Rate FiO2 10/05/16 09:06 134/68 10/05/16 08:51 134/68 10/05/16 08:49 82 29 10/05/16 08:49 82 29 97 10/05/16 08:46 162/94 10/05/16 08:44 87 19 10/05/16 08:44 87 19 97 10/05/16 08:42 169/92 10/05/16 08:39 88 24 96 10/05/16 08:39 88 24 10/05/16 08:36 157/99 10/05/16 08:35 159/86 10/05/16 08:34 92 26 10/05/16 08:34 92 26 96 10/05/16 08:34 36.6 92 12 159/86 96 Mask 10 10/05/16 05:44 37.1 75 20 113/68 (83) 94 Room Air Notes Mental Status: alert / awake / arousable, participated in evaluation Pt Amnestic to Procedure: Yes Nausea / Vomiting: adequately controlled Pain: adequately controlled Airway Patency, RR, SpO2: stable & adequate BP & HR: stable & adequate Hydration State: stable & adequate Anesthetic Complications: no major complications apparent
[2016-10-05 09:25] VITALS: BP 141/81; PULSE 80; TEMP 36.7; O2SAT 93
[2016-10-05 09:50] VITALS: BP 137/86; PULSE 80; O2SAT 95
--- NOTE | 2016-10-05 10:05 | OPERATIVE REPORT ---
DATE OF OPERATION: 10/05/2016 PREOPERATIVE DIAGNOSIS: Umbilical hernia. POSTOPERATIVE DIAGNOSIS: Same. OPERATION: Open repair of umbilical hernia with mesh. SURGEON: Les Marcelino MD ANESTHESIA: General. ESTIMATED BLOOD LOSS: About 5 mL. FINDINGS: Umbilical hernia size about 3 x 3 cm. COMPLICATIONS: None. INDICATIONS FOR THE PROCEDURE: This is a 51-year-old gentleman who presented with umbilical hernia with the bulging pain and also the hernia is getting bigger. The patient will require open repair of umbilical hernia with mesh. I did talk to the patient about the benefit and risk, alternate procedure. I indicated the risks may include, but not limited such as bleeding, infection, hernia recurrence, may need more procedure, and injury to bowel. The patient understands. He signed informed consent and I answered all questions. DETAILS OF PROCEDURE: We brought the patient to the OR and put the patient in the supine position. The patient received SCD on bilateral legs to prevent DVT. Also, the patient received 2 grams Ancef IV for prophylactic antibiotic. The patient received general anesthesia without difficulty. The abdomen was prepped and draped in routine sterile fashion. After a timeout, I injected local anesthesia by using 1% lidocaine mixed with 0.5% Marcaine just below the umbilicus and then I made a small incision just below the umbilicus and mobilized the umbilicus. Then, we found the patient had a large umbilical hernia size about 3 x 3 cm. I decided to use the mesh. The mesh was sized about a 6.4 x 3.4 cm. Then, I used #1 Ethibond to close the fascia into the mesh around the 360 degree interrupted suture. Then, we tied the suture. The mesh sat there nicely. No tension. Hemostasis obtained. Then, we used 2-0 Vicryl to reattach umbilical hernia back to the original location and used another 2-0 Vicryl to close subcutaneous layer, interrupted and closed skin by using 4-0 Vicryl and we put the dressing on. The patient tolerated the procedure well. All instrument, needle and sponge count correct x2 at the end of case. The patient transported to recovery room in stable condition. After the procedure, I did talk to the patient's family member about OR finding and procedure we did, they understand. Also, I gave them the postop care instruction, they understand. I attest to the content of the Intraoperative Record and any orders documented therein. Any exceptions are noted below. MTDD
[2016-10-05 10:20] VITALS: BP 146/81; PULSE 78; TEMP 36.7; O2SAT 95
[2016-10-05 10:45] VITALS: BP 158/96; PULSE 80; TEMP 37; O2SAT 97
== END | disposition home or self-care (01) ==
LOC: C.ACU 05:22
PROVIDERS: ATTEND Surgery
DX: K42.9 Umbilical hernia without obstruction or gangrene (principal); F17.200 Nicotine dependence, unspecified, uncomplicated